=== PATIENT | male | born 1975 | race Caucasian/White ===

== ENCOUNTER 2017-03-26 08:29 | Outpatient (CLI) | payer BC ==
--- NOTE | 2017-03-26 20:57 | ULT ---
BILATERAL RENAL ULTRASOUND 03/26/17 Ultrasonography of the kidneys was performed for evaluation of chronic kidney disease. Multiple ultr asonographic images were obtained and worksheets were reviewed. The right kidney measures 13.9 x 6.2 x 5.8 cm. The cortex was normal in thickness and echogenicity. No mass, hydronephrosis or obvious calcification was seen. The left kidney measures 12.6 x 7.3 x 6.4 cm. Cortex was normal in thickness around it, as was its echogenicity. There is an area in the midd le third of the kidney that on one image looked a bit globular, but no actual mass was appreciated o n any other image. I believe it is just a prominent renal column and to be taken as such unless the patient had hematuria which should prompt further investigation. There is no hydronephrosis or calci fication seen. Several frames through the urinary bladder showed a somewhat thick wall at 5 mm. The bladder was not fully distended, however, so this could be artifactual. Diffuse thickening like this can also be se en in cystitis or chronic outlet obstruction. A limited number of doppler images were submitted from this exam. They showed abundant blood flow, b oth on color flow and spectral analysis, in each kidney. If one intended there also be samplings fro m the renal arteries to assess renal artery stenosis, this was not done. If that is needed, we will be happy to complete the exam with those additional images. IMPRESSION: 1. No acute or chronic renal findings. 2. Somewhat prominent area in the middle third of the kidney that is felt to be most likely a p rominent renal column when looking at all images. See above. 3. Moderate thickening of the urinary bladder wall, but this might be artifactual since the sarath dder was poorly filled. POS: HOME
== END 2017-03-26 08:30 | disposition home or self-care (01) ==
LOC: BURULT 08:29
PROVIDERS: ATTEND Internal Medicine Nephrology
DX: N18.2 Chronic kidney disease, stage 2 (mild) (principal)
CPT/HCPCS: 76770